=== PATIENT | female | born 1995 ===

== ENCOUNTER 2023-12-20 06:03 | Day surgery (SDC) | payer OTHER ==
[2023-12-20] MEDS ORDERED: MORPHINE SULFATE 4 MG/ML VIAL IV ONE ×2 (09:20→10:55)
[2023-12-20] MEDS ORDERED: CEFAZOLIN SODIUM 1,000 MG VIAL IV ONE (09:45)
== END 2023-12-20 12:20 | disposition home or self-care (01) ==
LOC: CIR.AMB 06:03
PROVIDERS: ATTEND Surgery
DX: K81.1 Chronic cholecystitis (principal)